=== PATIENT | male | born 1945 | race Caucasian/White ===

== ENCOUNTER 2017-09-05 13:37 | Emergency (ER) | payer OTHER, MEDICARE ==
[2017-09-05 13:59] VITALS: TEMP 98.6
--- NOTE | 2017-09-05 14:15 | EDPHY ---
H & P Time Seen by Provider: 09/05/17 14:02 HPI/ROS: CHIEF COMPLAINT: Laceration left hand HISTORY OF PRESENT ILLNESS: 72-year-old [id number] male with up-to- date tetanus was cutting a pineapple when he sustained accidental laceration to his left palmar hand ulnar aspect and 3rd digit. No paresthesia. No sensory motor deficit. PHYSICAL EXAM (Prior to examination, patient consented to physical exam, hands were washed and my usual and customary physical exam procedures followed) 1) GENERAL: Well-developed, well-nourished, alert and oriented. Appears to be in no acute distress. 2) HEAD: Normocephalic 3) HEENT: sclera anicteric 4) LUNGS: Breathing comfortably. 5) SKIN: Laceration to the finger and palm 6) MUSCULOSKELETAL: Left hand palmar-ulnar aspect 2.5 cm laceration . Left middle digit middle phalanx palmar aspect 2.5 cm laceration. FDP and FDS function intact. 7) NEUROLOGIC: Full sensation two-point discrimination intact distally Smoking Status: Never smoked Constitutional: Initial Vital Signs Temperature (C) 37 C 09/05/17 13:56 Heart Rate 82 09/05/17 13:56 Respiratory Rate 15 09/05/17 13:56 Blood Pressure 117/79 09/05/17 13:56 O2 Sat (%) 94 09/05/17 13:56 O2 Delivery Mode Room Air Allergies/Adverse Reactions: aspirin Allergy (Verified 10/06/14 12:51) Vomiting ibuprofen Allergy (Verified 10/06/14 12:51) Vomiting Home Medications: Medication Instructions Recorded Albuterol Sulfate 09/05/17 Statin 09/05/17 MDM/Departure - MDM Procedures: Procedure: Laceration repair #1 I explained the indications, risks and benefits for both laceration repair and anesthetic administration. Verbal consent was obtained from the patient. The laceration on the left ulnar palm was anesthetized using 0.5% bupivicaine with epinephrine. After anesthetic administered the patient was observed for a period of time and had no apparent adverse effects. The wound was cleaned, prepped, draped in normal sterile fashion and explored to its base. No foreign body seen, no foreign bodies palpated. There were no deep structures involved. No tendon injury was identified. The wound was repaired with 8 simple interrupted 5 O Prolene suture . The wound repair was simple. The procedure was performed by myself. Patient has been informed that scarring will occur, although efforts have been made to minimize this. Procedure: Laceration repair #2 I explained the indications, risks and benefits for both laceration repair and anesthetic administration. Verbal consent was obtained from the patient. The laceration on the left middle digit was anesthetized using 0.5% bupivicaine without epinephrine digital nerve block. After anesthetic administered the patient was observed for a period of time and had no apparent adverse effects. The wound was cleaned, prepped, draped in normal sterile fashion and explored to its base. No foreign body seen, no foreign bodies palpated. There were no deep structures involved. No FDS or FDP dysfunction identified. No tendon injury was identified. The wound was repaired with 6 simple interrupted 5 O Prolene suture . The wound repair was simple. The procedure was performed by myself. Patient has been informed that scarring will occur, although efforts have been made to minimize this. - Depart Disposition: Home, Routine, Self-Care Clinical Impression: Laceration of left hand Qualifiers: Encounter type: initial encounter Foreign body presence: without foreign body Qualified Code(s): S61.412A - Laceration without foreign body of left hand, initial encounter Condition: Good Instructions: Care For Your Stitches (ED), Laceration (ED) Additional Instructions: Return to the ER if you develop redness, swelling, discharge, warmth to the wound, red streaks going up your arm, or any other symptoms that concern you. Referrals: Return, to the ER in 10 days for suture removal [Other] - As per Instructions
[2017-09-05 15:14] VITALS: BP 126/74; PULSE 74; RESP 16; O2SAT 93
== END 2017-09-05 15:14 | disposition home or self-care (01) ==
PROC: 0HQGXZZ Repair Left Hand Skin, External Approach (ICD-10-PCS; principal; 2017-09-05)
DX: S61.412A Laceration without foreign body of left hand, initial encounter (principal); S61.213A Laceration without foreign body of left middle finger without damage to nail, initial encounter; W26.8XXA Contact with other sharp object(s), not elsewhere classified, initial encounter; Y99.8 Other external cause status; Y93.89 Activity, other specified

== ENCOUNTER → 2017-12-11 | Outpatient (CLI) | payer OTHER, MEDICARE | LOC: FIMAGING 10:40 | PROVIDERS: ATTEND Internal Medicine Cardiovascular Disease | DX: I65.23 Occlusion and stenosis of bilateral carotid arteries (principal); I25.10 Atherosclerotic heart disease of native coronary artery without angina pectoris ==